=== PATIENT | male | born 1960 | race Caucasian/White ===

== ENCOUNTER 2022-07-15 13:35 | Outpatient (REF) | payer BC, SELFPAY ==
--- NOTE | 2022-07-15 13:30 | SKI_PTH ---
PATIENT: Konstantin Asher LOC: [facility] U#:[id number] AGE/SX: 61/M ROOM: RE07/15/[address]: Dolores Robison : 1960 BED: DIS: 07/15/2022 SPEC #: [id number] RECD: 07/15/22 16:18 STATUS: MAURICE REChaz #: [id number] CHERRIE: 07/15/22 13:[address]: Dolores Robison DEPT: Surgical Specimen RECD BY: Kandi Lewis ENTERED: 07/15/22 16:19 SP TYPE: MAYA SANCHEZ DR: Luann Oconnor Tissues: 1 - SKIN BIOPSY(SHAVE/PUNCH) Procedures: SKIN LEVEL 4 Comments: [id number]
== END 2022-07-15 13:36 | disposition home or self-care (01) ==
LOC: LBN 13:35
PROVIDERS: PCP Internal Medicine; Visit Provider Surgery
DX: L82.1 Other seborrheic keratosis (principal)
CPT/HCPCS: 88305

== ENCOUNTER → 2022-09-20 08:33 | Outpatient (BNVA) | payer MEDICARE, SELFPAY | PROVIDERS: PCP Internal Medicine; Referring Provider Internal Medicine; Visit Provider Student in an Organized Health Care Education/Training Program | DX: M67.442 Ganglion, left hand (principal); R22.32 Localized swelling, mass and lump, left upper limb | CPT/HCPCS: 99213 ==

== ENCOUNTER 2022-10-16 09:23 | Day surgery (SDC) | payer MEDICARE, SELFPAY ==
[2022-10-16 10:06] VITALS: BP 139/92; PULSE 69; RESP 18; TEMP 36.4; O2SAT 97
--- NOTE | 2022-10-16 11:12 | W.PM.DSUDISC ---
Date of service: 10/16/22 Time of Service: 11:19 Discharge Plan Disposition Patient Disposition: Home Condition: Good Discharge Details Reason For Visit: LIF/forearm mass excision Attending Provider: Wale Yi Primary Care Provider: Luann Oconnor Home Meds and New Rx's Prescriptions: New acetaminophen 500 mg tablet 1,000 mg PO TID Qty: 90 0RF hydrocodone-acetaminophen 5-325 mg tablet 1 tab PO Q6H PRN (Reason: pain) Qty: 6 0RF Continued testosterone cypionate [Depo-Testosterone] 200 mg/mL oil 100 mg IM Q2W trazodone 50 mg tablet 50 mg PO DAILY atorvastatin 40 mg tablet 40 mg PO DAILY diltiazem HCl [Cardizem] 30 mg tablet 30 mg PO BID duloxetine 60 mg capsule,delayed release(DR/EC) 60 mg PO DAILY metoprolol succinate 25 mg tablet extended release 24 hr 25 mg PO DAILY naproxen 500 mg tablet 500 mg PO BID PRN Discharge Instructions Additional Instructions: Mass Removal Discharge Instructions Activity: You may use your hand/arm as tolerated but avoid trying to do too much too soon. Dressing/Cast: You may remove the finger dressing after 48 hours and replace with a bandai. The arm dressing may stay in place for one week. However, you may choose to remove it after 48 hours if you desire, and then replace with a bandaid. Both may get wet after 48 hours. Medications: - You should take Tylenol and Ibuprofen for baseline pain control. - You have Hydrocodone for breakthrough pain if needed. - You may apply ice if needed. Follow-up: 7-10 days Referrals: Wale Yi MD [ [facility] STAFF PHYSICIAN] - Activity:: Activity as Tolerated Remove Dressings/Wound Care:: 48 hours Shower/Bathe:: 48 hours Diet:: As Tolerated Discharge Orders Discharge Orders: Discharge Order (Routine); Ordered 10/16/22 Ordered By: Wale Yi DS: Diagnosis Discharge Diagnosis (1) Digital mucous cyst of finger of left hand: Status: Acute (2) Mass of left forearm: Status: Acute
[2022-10-16] MEDS: Lidocaine 1% Pres-Free W/EPI 1/200,000 30 ML VIAL (11:29)
[2022-10-16] MEDS: Sodium Bicarbonate 50 MEQ/50 ML VIAL (11:29)
--- NOTE | 2022-10-16 11:33 | W.PM.OP ---
Date of service: 10/16/22 Time of Service: 11:33 Operative Note Operative Note DATE OF PROCEDURE: 10/16/22 PRE-OP DIAGNOSIS: Right Index Finger Mucous Cyst Right Volar Arm Epidermal Mass POST-OP DIAGNOSIS: same (Right Volar Arm Epidermoid Cyst) PROCEDURE: Mucous Cyst Excision - Right Index Finger Excision of Right Volar Arm Epidermoid Cyst (5mm) SURGEON: Wale Yi ANESTHESIA TYPE: Local By Surgeon Refer to Anesthesia Record ESTIMATED BLOOD LOSS: 5 PATHOLOGY: none sent COMPLICATIONS: None Patient was transported to: same day Patient's condition: stable Indications: I have seen Konstantin in clinic for symptoms of a digital mucous cyst of the right index finger as well as a epidermal cyst/mass of the right volar arm. These masses persisted and caused pain to direct pressure and with use. The diagnosis of a mucous cyst was made and the likely diagnosis of epidermal cyst was discussed. The symptoms had not responded to conservative measures. I discussed cyst excision with the patient, both to be done at the same time and with local anesthetic. I reviewed the risks of the procedure to include, but not limited to, bleeding, infection, pain, stiffness, recurrence, damage to nerves or vessels. Despite these risks, the patient elected to proceed. Findings: There was a cyst of the distal phalanx, arising from the DIP joint. The cyst and its capsule was removed and an arthrotomy at the cyst location performed. The mass of the volar arm was excised and was located only in the skin and appeared to be a epidermoid cyst. Procedure Description: Konstantin was greeted in the preoperative holding area where the correct side was identified and marked. The consent was reviewed with the patient and signed. All questions were answered. He was taken back to the operating room. The patient was placed into the supine position on the operating room table with the right arm on an arm board. All bony prominences were well padded. No prophylactic antibiotics were administered since this was a clean, elective hand surgical case. The right arm was then prepped with Chloraprep and draped in a standard fashion with an extremity drape. A timeout to confirm correct identity, side and site, procedure, allergies, anesthesia, and medical concerns was performed. A digital block was then performed using 1% lidocaine with epinephrine and buffered with sodium bicarbonate. The field around the volar arm mas was then anesthetized with the same. This was allowed time to set up completely and was tested before proceeding with the case. Starting with the volar arm mass, I made an elliptical incision surrounding the mass. This was taken sharply through the skin only. The mass was completely included within the skin and had a rounded, glistening white appearance. It measures present 5 mm in diameter. It was sectioned and appear to be keratin filled, consistent with a diagnosis of epidermoid cyst. There is no significant bleeding. The skin was then closed with two #4-0 nylon sutures. Moving to the mucous cyst, A longitudinal incision was then made overlying the cyst. The skin was incised sharply. Full-thickness flaps were then elevated to expose the cyst. The cyst capsule was easy identifiable but there is no significant fluid and a small defect in the skin overlying the cyst from previous ruptures. The cyst capsule was then removed with a rongeur and followed back towards the DIP joint. Using the rongeur and a [place] I was able to penetrate into the DIP joint creating a small arthrotomy from the origin of the mucous cyst. The finger was irrigated and once again checked to make sure that all components of the cyst were removed. The skin was then closed using a #4-0 nylon in interrupted fashion. The finger was dressed with Xeroform, 4 x 4, conform dressing. The patient tolerated the procedure well and was returned to the Same Day Surgery area in a stable condition suffering no known complication.
[2022-10-16 11:35] VITALS: BP 134/91; PULSE 73; RESP 18; TEMP 36.5; O2SAT 97
== END 2022-10-16 11:59 | disposition home or self-care (01) ==
PROVIDERS: PCP Internal Medicine; Visit Provider Student in an Organized Health Care Education/Training Program
PROC: (CPT 26160; principal; 2022-10-16 10:30)
DX: M25.841 Other specified joint disorders, right hand (principal); L72.8 Other follicular cysts of the skin and subcutaneous tissue
CPT/HCPCS: 26160; 11400

== ENCOUNTER 2023-02-20 13:16 | Outpatient (REF) | payer MEDICARE, SELFPAY ==
--- NOTE | 2023-02-20 13:55 | SKI_PTH ---
PATIENT: Konstantin Asher LOC: [facility] U#:[id number] AGE/SX: 62/M ROOM: RE02/20/[address]: Dolores Robison : 1960 BED: DIS: 02/20/2023 SPEC #: [id number] RECD: 02/20/23 17:05 STATUS: MAURICE ESCALONA #: [id number] CHERRIE: 02/20/23 13:[address]: Dolores Robison DEPT: Surgical Specimen RECD BY: aKndi Lewis ENTERED: 02/20/23 17:05 SP TYPE: MAYA SANCHEZ DR: Luann Oconnor Tissues: 1 - SKIN BIOPSY(SHAVE/PUNCH) 2 - SKIN BIOPSY(SHAVE/PUNCH) Procedures: SKIN LEVEL 4 Comments: [id number]
== END 2023-02-20 13:17 | disposition home or self-care (01) ==
LOC: LBN 13:16
PROVIDERS: PCP Internal Medicine; Visit Provider Surgery
DX: L83 Acanthosis nigricans (principal)
CPT/HCPCS: 88305

== ENCOUNTER → 2023-02-20 13:16 | Outpatient (BNVA) | payer MEDICARE, SELFPAY | PROVIDERS: PCP Internal Medicine; Referring Provider Internal Medicine; Visit Provider Surgery | DX: L83 Acanthosis nigricans (principal) | CPT/HCPCS: 11422 ==

== ENCOUNTER → 2023-03-13 12:59 | Outpatient (BNVA) | payer MEDICARE, SELFPAY | PROVIDERS: PCP Internal Medicine; Referring Provider Internal Medicine; Visit Provider Surgery | DX: Z48.817 Encounter for surgical aftercare following surgery on the skin and subcutaneous tissue (principal) ==

== ENCOUNTER → 2024-11-10 13:24 | Outpatient (BNVA) | payer MEDICARE, SELFPAY | PROVIDERS: PCP Internal Medicine; Referring Provider Internal Medicine; Visit Provider Surgery | DX: L82.0 Inflamed seborrheic keratosis (principal); L98.9 Disorder of the skin and subcutaneous tissue, unspecified | CPT/HCPCS: 99213 ==

== ENCOUNTER 2024-12-06 02:21 | Outpatient (CLI) | payer OTHER, MEDICARE, SELFPAY ==
--- NOTE | 2024-12-06 10:15 | DI.RAD_ITS ---
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 Two views. COMPARISON: No exams were available for comparison FINDINGS: HEART: Normal size. Aorta: Not dilated. PULMONARY VASCULATURE: Normal. MEDIASTINUM: Unremarkable. No visible adenopathy LUNGS: Clear. PLEURAL SPACE: No pleural effusion or pneumothorax. BONE:Sternal wires. SOFT TISSUES: Unremarkable. IMPRESSION: No acute abnormality. DATA REPOSITORY: RADIATION DOSE DELIVERED:
== END 2024-12-06 02:41 ==
LOC: DI 02:21
PROVIDERS: PCP Internal Medicine; Visit Provider Chiropractor
DX: D86.0 Sarcoidosis of lung (principal)
CPT/HCPCS: 71046

== ENCOUNTER 2024-12-06 03:45 | Outpatient (CLI) | payer OTHER, SELFPAY ==
[2024-12-06] MEDS: Levalbuterol HFA 15 GM INH 4 PUFF IH (13:19)
[2024-12-06] MEDS: Inhaler, Assist Device 1 EACH MC (13:19)
--- NOTE | 2024-12-07 09:40 | W.PFT ---
Date of service: 12/06/24 Time of Service: 10:14 Pulmonary Function Test Result Indications: Pulmonary sarcoidosis Impression 1. Did not meet ATS standards for spirometry and was not reliable. Only able to complete 1 attempt post-bronchodilator
== END 2024-12-06 03:46 | disposition home or self-care (01) ==
LOC: RT 03:45
PROVIDERS: PCP Internal Medicine; Visit Provider Internal Medicine Pulmonary Disease
DX: D86.0 Sarcoidosis of lung (principal)
CPT/HCPCS: 94060